=== PATIENT | female | born 1985 | race Asian ===

== ENCOUNTER 2017-07-07 20:19 | Emergency (ER) | payer MEDICAID, OTHER ==
[~2017-07-07] VITALS: Ht 149.9 cm; Wt 65.3 kg
[~2017-07-07 20:19] MED LIST: ASCO500T8 PO; CALC1CAP8 PO; ESTR1TAB17 PO; HYDR2TAB29 PO; IBUP200T48 PO; MULT-516 PO; OMEG500C3 PO; VITA1CAP PO; VITA400T6 PO
[2017-07-07 20:45] LABS: HEMATOCRIT 41.4 % (34.6-47.8); HEMOGLOBIN 13.9 g/dL (11.7-16.4); WHITE BLOOD COUNT 10.3 x10^3/uL (3.4-10)
[2017-07-07] MEDS ORDERED: ONDANSETRON 2MG/ML, 2ML ONE (20:50)
[2017-07-07] MEDS ORDERED: MECLIZINE CHEWABLE 25 MG TAB ONE (20:51)
[2017-07-07 20:57] LABS: BLOOD UREA NITROGEN 14 mg/dL (7-18)
[2017-07-07] MEDS ORDERED: MECLIZINE CHEWABLE 25 MG TAB PO ONE ×2 (21:00→21:30)
[2017-07-07] MEDS ORDERED: SODIUM CHLORIDE FLUSH 10ML SYR IVF ONE (21:00)
[2017-07-07] MEDS ORDERED: ONDANSETRON 2MG/ML, 2ML IVPush ONE (21:00)
[2017-07-07] MEDS ORDERED: SODIUM CHLORIDE 0.9% 1,000ML IVBOLUS ONE (21:00)
[2017-07-07] MEDS ORDERED: CEFTRIAXONE PMX 2GM/50ML 50 ML ONE (21:28)
[2017-07-07 22:55] VITALS: BP 101/64
== END 2017-07-07 22:58 | disposition home or self-care (01) ==
LOC: ED 20:53
DX: E86.0 Dehydration (principal); R42 Dizziness and giddiness
CPT/HCPCS: 36415; 80048; 82040; 85025; 96361; 96374; 99284; J2405; J7030